=== PATIENT | male | born 1970 | race Caucasian/White ===

== ENCOUNTER 2025-01-19 06:04 | Day surgery (SDC) | payer BC ==
[2025-01-17 14:44] VITALS: BMI 35.5
[2025-01-19] MEDS ORDERED: SCOPOLAMINE 1 MG/72 HR PATCH TRANSDERM ONE (06:09)
[2025-01-19] MEDS: IV FLUID CONTINUATION 1,000 ML IV ONE (06:53)
[2025-01-19 06:58] VITALS: TEMP 97.2
[2025-01-19] MEDS ORDERED: HYDROmorphone 0.5 MG/0.5 ML SYRINGE IVP PRN (07:00)
[2025-01-19] MEDS ORDERED: MIDAZOLAM 2 MG/2 ML VIAL IV PRN (07:00)
[2025-01-19] MEDS: DEXAMETHASONE SOD PHOSPHATE 4 MG/ML 1 ML VIAL IV ONE (07:09)
[2025-01-19] MEDS: ONDANSETRON 4 MG/2 ML VIAL IVP ONE (07:09)
[2025-01-19] MEDS: LACTATED RINGERS 1,000 ML IV SCH (07:09)
[2025-01-19] MEDS ORDERED: SUCCINYLCHOLINE CHLORIDE 200 MG/10 ML VIAL IV ONE (07:39)
[2025-01-19] MEDS ORDERED: PROPOFOL 10 MG/ML 20 ML VIAL IV ONE (07:39)
[2025-01-19] MEDS ORDERED: LIDOCAINE 1% INJ 10MG/ML (20 ML MDV) ONE (07:39)
[2025-01-19] MEDS ORDERED: MIDAZOLAM 2 MG/2 ML VIAL ONE (07:39)
[2025-01-19] MEDS ORDERED: fentaNYL (PF) 50 MCG/ML 2 ML AMP ONE (07:39)
[2025-01-19] MEDS: metroNIDAZOLE-NS PMX 500 MG in SALINE 1 100ML.BAG IVPB PRN (07:58)
[2025-01-19] MEDS: METHYLENE BLUE 50 MG/10 ML VIAL MISCELLANE ONE (08:06)
[2025-01-19] MEDS: LIDOCAINE 1%-EPI 1:100,000 20 ML VIAL SQ ONE (08:06)
--- NOTE | 2025-01-19 08:37 | P.OP ---
Date of Procedure: 01/19/25 Preoperative Diagnosis: Pilonidal cyst Postoperative Diagnosis: Pilonidal cyst Procedure(s) Performed: Pilonidal cyst excision Anesthesia: ISABELLEA Surgeon: Arlette Yeager Pathology: other (Pilonidal cyst) Condition: stable Disposition: same day Indications for Procedure: 54-year-old male presented to the surgery clinic with complaint of pilonidal cyst. This has increased in size and began draining for the patient. He has been on antibiotic therapy secondary to this multiple times. Plan is for cyst e xcision. Risks, benefits and alternatives including open wound care was discussed with the patient. Packing instructions were described to the patient and the patient's . Expectation is for 6 to 12 weeks of healing after excision. Operative Findings: Pilonidal cyst, excision site 3 x 5 cm Description of Procedure: Patient was brought to the operating suite and placed supine on the operating table. Sedation was provided by anesthesia and he underwent endotracheal intubation. He was then placed in prone position and was prepped and draped in regular sterile fashion. Methylene blue was inserted through the pilonidal sinus tract. Elliptical incision was made around the anticipated pilonidal cyst and dissection was carried towards the presacral fascia. The entire capsule of the cyst was excised noting that no blue tissue was left behind. Hemostasis was noted to be maintained. Cautery was used for this. Wound was then irrigated and packed with half-inch iodoform packing. The wound measured approximately 3 x 5 cm. Patient had sterile dressing applied and was awakened in the operating suite. Plan is to take the patient to postanesthesia care unit in stable condition.
[2025-01-19 08:55] VITALS: RESP 16
[2025-01-19 09:45] VITALS: PULSE 72
[2025-01-19 09:47] VITALS: BP 128/82
== END 2025-01-19 10:16 | disposition home or self-care (01) ==
LOC: OR 06:04
PROVIDERS: ATTEND Surgery
DX: L05.91 Pilonidal cyst without abscess (principal); H91.90 Unspecified hearing loss, unspecified ear; H81.09 Meniere's disease, unspecified ear; E66.9 Obesity, unspecified; Z79.899 Other long term (current) drug therapy
CPT/HCPCS: 11770; 88304; J2250; J0330; J1100; J0690; J2405; J2003; J3010; J2704; Q9968; J1836